=== PATIENT | male | born 1975 | race Caucasian/White ===

== ENCOUNTER 2018-08-03 10:01 | Emergency (ER) | payer SELFPAY ==
[2018-08-03] MEDS: CEFAZOLIN 1 GM INJ IM (11:20)
[2018-08-03] MEDS: ONDANSETRON (ODT) 4 MG TAB ODT (11:20)
[2018-08-03] MEDS: HYDROCODONE/APAP (5/325) TAB PO (11:21)
[2018-08-03] MEDS: LIDOCAINE 1% (MDV) 20 ML INJ SC (11:21)
== END 2018-08-03 12:40 | disposition home or self-care (01) ==
LOC: FTE 10:01
DX: S61.012A Laceration without foreign body of left thumb without damage to nail, initial encounter (principal); W26.8XXA Contact with other sharp object(s), not elsewhere classified, initial encounter; Y92.69 Other specified industrial and construction area as the place of occurrence of the external cause
CPT/HCPCS: 12001; 73140; 96372; 99284-25

== ENCOUNTER 2018-08-05 16:23 | Emergency (ER) | payer MEDICAID | END 2018-08-05 20:26 | disposition home or self-care (01) | LOC: FTE 16:23 | DX: S62.502D Fracture of unspecified phalanx of left thumb, subsequent encounter for fracture with routine healing (principal); X58.XXXD Exposure to other specified factors, subsequent encounter | CPT/HCPCS: 29125; 99282-25 ==